=== PATIENT | male | born 1965 | race Caucasian/White ===

== ENCOUNTER 2017-07-15 16:14 | Observation (INO) | payer OTHER ==
[~2017-07-15] VITALS: Ht 182.9 cm; Wt 101.9 kg
[2017-07-15 16:56] LABS: HEMOGLOBIN 16.4 G/DL (12.5-16.6); MCHC 33.5 G/DL (30.0-36.0); MCV 89.6 FL (86-99); PLATELET COUNT 393 K/uL (156-360); RBC DIS.WIDTH-CV 12.4 % (11.8-14.6); RBC DIS.WIDTH-SD 40.8 % (39-53); RED BLOOD COUNT 5.47 M/uL (4.00-5.50); WHITE BLOOD COUNT 11.1 K/uL (4.1-10.2)
[2017-07-15 17:05] LABS: CHLORIDE 106 mEq/L (99-109)
[2017-07-15 17:06] LABS: POTASSIUM 4.6 mEq/L (3.7-5.4); SODIUM 142 mEq/L (136-147)
[2017-07-15 17:07] LABS: GLUCOSE 85 mg/dL (70-99)
[2017-07-15 17:11] LABS: CREATININE 1.1 mg/dL (0.6-1.3); GFR ESTIMATE (CALCULATED) > 59 mL/min/ (58.99-99999)
[2017-07-15 17:12] LABS: UREA NITROGEN (BUN) 13 mg/dL (9-23)
[2017-07-15 17:16] LABS: TROP-I INTERPRETATION NEGATIVE; TROPONIN-I < 0.01 ng/mL (0.0-0.30)
[2017-07-15 20:02] LABS: INTER. NORMALIZED RATIO 1.2
[2017-07-15 20:05] LABS: PTT 39.7 SEC (25-37)
[2017-07-15] MEDS ORDERED: PRILOSEC20 MG PO (20:48)
[2017-07-15] MEDS ORDERED: AZELASTINE137 MCG/0. BOTH NARES (20:48)
[2017-07-15] MEDS ORDERED: AMBIEN10 MG PO (20:48)
[2017-07-15] MEDS ORDERED: ADVIL200 MG PO (20:49)
[2017-07-16 00:40] LABS: TROP-I INTERPRETATION NEGATIVE; TROPONIN-I 0.01 ng/mL (0.0-0.30)
[2017-07-16 01:58] LABS: HDL CHOLESTEROL 33 MG/DL (Desirable>=40); LDL CHOLESTEROL 121 mg/dL (Desirable<100); NON-HDL CHOLESTEROL 159 mg/dL (Desirable<160); TOTAL CHOLESTEROL 192 mg/dL (Desirable<200); TRIGLYCERIDES 189 MG/DL (Normal: <150)
[2017-07-16 07:11] LABS: MCH 30.1 PG (29.0-34.0); MCV 88.3 FL (86-99); PLATELET COUNT 376 K/uL (156-360); RBC DIS.WIDTH-CV 12.5 % (11.8-14.6); RBC DIS.WIDTH-SD 40.4 % (39-53); RED BLOOD COUNT 5.32 M/uL (4.00-5.50); WHITE BLOOD COUNT 10.2 K/uL (4.1-10.2)
[2017-07-16 07:44] LABS: ALBUMIN 4.1 G/DL (3.2-4.8); ALKALINE PHOSPHATASE 75 IU/L (3-129); ALT (GPT) 19 IU/L (3-49); AST (GOT) 17 IU/L (2-34); CHLORIDE 105 MEQ/L (99-109); CREATININE 0.9 MG/DL (0.6-1.3); GFR ESTIMATE (CALCULATED) > 59 mL/min/ (58.99-99999); GLUCOSE 88 mg/dL (70-99); POTASSIUM 4.4 MEQ/L (3.7-5.4); SODIUM 141 MEQ/L (136-147); TOTAL BILIRUBIN 0.5 MG/DL (0.0-1.0); TOTAL PROTEIN 7.3 G/DL (6.4-8.3); UREA NITROGEN (BUN) 11 mg/dL (9-23)
[2017-07-16 07:48] LABS: TROP-I INTERPRETATION NEGATIVE; TROPONIN-I < 0.01 ng/mL (0.0-0.30)
[2017-07-16] MEDS ORDERED: LOPRESSOR25 MG PO (12:18)
[2017-07-16] MEDS ORDERED: ASPIR 8181 M1 PO (12:18)
[2017-07-16 13:32] VITALS: BP 121/78
== END 2017-07-16 13:33 | disposition home or self-care (01) ==
LOC: EME 16:14 → EDOF 22:51 → ENRESERV 22:55 → CANRESERV 07-16 05:40 → ENRESERV 07-16 05:40 → CANRESERV 07-16 11:29 → EDOF 07-16 13:33
PROVIDERS: Hospitalist; Physician Assistant
DX: I48.0 Paroxysmal atrial fibrillation (principal); J40 Bronchitis, not specified as acute or chronic; E78.5 Hyperlipidemia, unspecified; Z79.82 Long term (current) use of aspirin; Z82.49 Family history of ischemic heart disease and other diseases of the circulatory system
CPT/HCPCS: 71046; 80048; 80053; 80061; 83735; 84443; 84484; 85027; 85379; 85610; 85730; 93005; G0378; J1650; J7030